=== PATIENT | female | born 1935 | race Caucasian/White ===

== ENCOUNTER 2022-06-14 11:47 | Inpatient (IN) | payer MEDICARE, BC ==
[~2022-06-14] VITALS: Ht 160 cm; Wt 45.4 kg
[~2022-06-14 11:47] MED LIST: ASPI-518; BENA10TA74; HYDR25TA; SIMV10TA97; SOTA160T
[2022-06-14] MEDS ORDERED: AZITHROMYCIN 500MG/250ML 250 ML IV NR (14:00)
[2022-06-14] MEDS ORDERED: CEFTRIAXONE 1GM PREMIX 50 ML IV NR (14:00)
[2022-06-14 14:41] LABS: CHLORIDE 100 mEq/L (98-107)
[2022-06-14 14:43] LABS: INR 1.4; PROTHROMBIN TIME 14.6 sec (9.6-11.0)
[2022-06-14 14:57] LABS: HEMATOCRIT. 24.8 % (36.0-48.0); HEMOGLOBIN. 8.6 g/dL (12.0-16.0); MEAN CORPUSCULAR HEMOGLOBIN 30.1 pg (28.0-32.0); MEAN CORPUSCULAR VOLUME 86.5 fL (81.0-99.0); RED BLOOD CELL COUNT 2.87 mill/uL (4.2-5.4); RED CELL DISTRIBUTION WIDTH 21.9 % (11.6-14.6)
[2022-06-14] MEDS ORDERED: ACETAMINOPHEN 650MG SUPP PR PRN (16:45)
[2022-06-14] MEDS ORDERED: MORPHINE SULFATE 2 MG/ML CPJ (NOT FOR IM USE) IV PRN ×2 (16:45)
[2022-06-14] MEDS ORDERED: IPRATROPIUM/ALBUTEROL 0.5-3(2.5)MG/3ML NEB NEB PRN (16:45)
[2022-06-14] MEDS ORDERED: ONDANSETRON HCL 4MG/2ML INJ IV PRN (16:45)
[2022-06-14] MEDS ORDERED: DEXT 5%/0.45% NACL 1000ML 1,000 ML IV SCH (16:45)
[2022-06-14] MEDS ORDERED: SODIUM CHLORIDE 0.9% 1,000 ML IV ONE (17:00)
[2022-06-14] MEDS ORDERED: KCL 20MEQ/100ML PREMIX 100 ML IV ONE (17:30)
[2022-06-14 17:38] LABS: PLATELET ESTIMATE DECREASED
[2022-06-14 17:42] LABS: MEAN PLATELET VOLUME 10.6 fl (7.4-10.4); PLATELET 82 x1000/uL (130-400)
[2022-06-14] MEDS ORDERED: KCL 20MEQ/100ML PREMIX 100 ML IV NR (21:00)
[2022-06-14 23:51] LABS: CREATINE KINASE 90 IU/L (26-192)
[2022-06-15 01:45] VITALS: BP 91/46
[2022-06-15 07:21] LABS: HEMATOCRIT. 23.6 % (36.0-48.0); HEMOGLOBIN. 8.2 g/dL (12.0-16.0); MEAN CORPUSCULAR HEMOGLOBIN 29.7 pg (28.0-32.0); MEAN CORPUSCULAR VOLUME 85.7 fL (81.0-99.0); RED BLOOD CELL COUNT 2.76 mill/uL (4.2-5.4); RED CELL DISTRIBUTION WIDTH 21.4 % (11.6-14.6)
[2022-06-15 07:33] LABS: CHLORIDE 103 mEq/L (98-107)
[2022-06-15 07:58] LABS: CREATINE KINASE 56 IU/L (26-192); HDL CHOLESTEROL 12 mg/dL (40-59); LDL CHOLESTEROL 25 mg/dL (5-100)
[2022-06-15 08:00] VITALS: BP 91/40
[2022-06-15] MEDS: FAMOTIDINE 20MG/2ML VIAL IV SCH (09:00)
[2022-06-15] MEDS ORDERED: SODIUM CHLORIDE 0.9% 1000ML BAG (SEPSIS BOLUS) IV ONE (10:45)
[2022-06-15] MEDS ORDERED: HEPARIN 100 UNITS/1 ML VIAL IVF PRN (10:45)
[2022-06-15] MEDS: DEXT 5%/0.9% NACL 1,000 ML IV SCH (10:45)
[2022-06-15] MEDS: PIPERACILLIN/TAZOBACTAM 3.375 G in DEXTROSE 5% WATER 50 ML IV SCH ×2 (12:45→23:19)
[2022-06-15] MEDS ORDERED: AZITHROMYCIN 250 MG in DEXT 5% WATER 250 ML IV SCH (14:00)
[2022-06-15] MEDS ORDERED: CEFTRIAXONE 1,000 MG in DEXTROSE 5% WATER 50 ML IV SCH (14:00)
[2022-06-15 16:00] VITALS: BP 78/34
[2022-06-15 16:46] LABS: CLARITY URINE TURBID (CLEAR); COLOR URINE ORANGE (YELLOW); KETONES URINE TRACE (NEGATIVE); LEUKOCYTE ESTERASE URINE 3+ (NEGATIVE); NITRITE URINE POSITIVE (NEGATIVE); OCCULT BLOOD URINE 3+ (NEGATIVE); PROTEIN URINE 2+ (NEGATIVE); SPECIFIC GRAVITY URINE 1.017 (1.005-1.030)
[2022-06-15 20:00] VITALS: BP 86/39
[2022-06-16] VITALS: BP 105/54
[2022-06-16] MEDS: DEXT 5%/0.9% NACL 1,000 ML IV SCH ×2 (03:55→21:47)
[2022-06-16 04:00] VITALS: BP 101/63
[2022-06-16 05:39] LABS: CHLORIDE 105 mEq/L (98-107)
[2022-06-16 05:43] LABS: HEMATOCRIT. 25.9 % (36.0-48.0); HEMOGLOBIN. 8.7 g/dL (12.0-16.0); MEAN CORPUSCULAR HEMOGLOBIN 29.5 pg (28.0-32.0); MEAN CORPUSCULAR VOLUME 87.8 fL (81.0-99.0); RED BLOOD CELL COUNT 2.95 mill/uL (4.2-5.4); RED CELL DISTRIBUTION WIDTH 21.9 % (11.6-14.6)
[2022-06-16 05:48] LABS: CREATINE KINASE 41 IU/L (26-192)
[2022-06-16 08:00] VITALS: BP 94/40
[2022-06-16 08:20] LABS: NUCLEATED RED BLOOD CELLS 1 /100 WBC; PLATELET ESTIMATE DECREASED
[2022-06-16 08:34] LABS: PLATELET ESTIMATE DECREASED
[2022-06-16 08:38] LABS: PLATELET 52 x1000/uL (130-400)
[2022-06-16 08:40] LABS: MEAN PLATELET VOLUME 10.4 fl (7.4-10.4)
[2022-06-16 12:00] VITALS: BP 86/43
[2022-06-16] MEDS: PIPERACILLIN/TAZOBACTAM 3.375 G in DEXTROSE 5% WATER 50 ML IV SCH (12:35)
[2022-06-16 16:00] VITALS: BP 101/56
[2022-06-16 17:08] LABS: CREATINE KINASE 37 IU/L (26-192)
[2022-06-16 20:00] VITALS: BP 103/45
[2022-06-16] MEDS: AZITHROMYCIN 250 MG in DEXT 5% WATER 250 ML IV SCH (21:47)
[2022-06-16] MEDS: ACETAMINOPHEN 650MG SUPP PR PRN (22:56)
[2022-06-17] VITALS: BP 102/49
[2022-06-17] MEDS: PIPERACILLIN/TAZOBACTAM 3.375 G in DEXTROSE 5% WATER 50 ML IV SCH ×3 (00:08→23:30)
[2022-06-17] MEDS ORDERED: DEXTROSE 50% WATER 50ML SYRINGE IV PRN ×2 (00:30→20:45)
[2022-06-17 04:00] VITALS: BP 117/45
[2022-06-17] MEDS: BLOOD SUGAR DIAGNOSTIC STRIP TEST SCH ×5 (07:08→20:53)
[2022-06-17 08:00] VITALS: BP 113/51
[2022-06-17] MEDS: FAMOTIDINE 20MG/2ML VIAL IV SCH (08:56)
[2022-06-17] MEDS: DEXT 5%/0.9% NACL 1,000 ML IV SCH ×2 (11:00→20:49)
[2022-06-17 11:05] LABS: HEMATOCRIT. 25.5 % (36.0-48.0); HEMOGLOBIN. 8.9 g/dL (12.0-16.0); RED BLOOD CELL COUNT 2.96 mill/uL (4.2-5.4); RED CELL DISTRIBUTION WIDTH 22.3 % (11.6-14.6)
[2022-06-17 11:33] LABS: CHLORIDE 109 mEq/L (98-107)
[2022-06-17 11:41] LABS: PHOSPHORUS 2.7 mg/dL (2.5-4.9)
[2022-06-17 12:00] VITALS: BP 96/48
[2022-06-17] MEDS ORDERED: MAGNESIUM 2 G PREMIX 50 ML IV NR (15:00)
[2022-06-17 16:00] VITALS: BP 102/54
[2022-06-17] MEDS: KCL 20MEQ/100ML PREMIX 100 ML IV SCH ×2 (17:29→17:32)
[2022-06-17] MEDS: AZITHROMYCIN 250 MG in DEXT 5% WATER 250 ML IV SCH (17:33)
[2022-06-17 18:53] LABS: MEAN PLATELET VOLUME 11.9 fl (7.4-10.4)
[2022-06-17 18:56] LABS: PLATELET 19 x1000/uL (130-400)
[2022-06-17 18:58] LABS: PLATELET ESTIMATE MARKEDLY DECREASED
[2022-06-17 20:00] VITALS: BP 105/48
[2022-06-17] MEDS: INSULIN LISPRO 100 UNITS/ML SUBCUT SCH (20:53)
[2022-06-18 04:00] VITALS: BP 108/49
[2022-06-18] MEDS: BLOOD SUGAR DIAGNOSTIC STRIP TEST SCH ×3 (06:54→17:20)
[2022-06-18] MEDS: DEXT 5%/0.9% NACL 1,000 ML IV SCH (06:55)
[2022-06-18 07:16] LABS: HEMATOCRIT. 24.2 % (36.0-48.0); HEMOGLOBIN. 8.2 g/dL (12.0-16.0); MEAN CORPUSCULAR HEMOGLOBIN 29.6 pg (28.0-32.0); MEAN CORPUSCULAR VOLUME 86.8 fL (81.0-99.0); MEAN PLATELET VOLUME 12.9 fl (7.4-10.4); RED BLOOD CELL COUNT 2.79 mill/uL (4.2-5.4); RED CELL DISTRIBUTION WIDTH 22.6 % (11.6-14.6)
[2022-06-18] MEDS: INSULIN LISPRO 100 UNITS/ML SUBCUT SCH ×3 (07:50→18:46)
[2022-06-18 08:05] LABS: PLATELET 14 x1000/uL (130-400)
[2022-06-18] MEDS ORDERED: CEFEPIME 1,000 MG in DEXTROSE 5% WATER 50 ML IV SCH (09:30)
[2022-06-18 12:00] VITALS: BP 128/54
[2022-06-18] MEDS: IPRATROPIUM/ALBUTEROL 0.5-3(2.5)MG/3ML NEB HHN SCH ×2 (12:32→14:32)
[2022-06-18] MEDS: ACETAMINOPHEN 650MG SUPP PR PRN (13:50)
[2022-06-18 15:19] LABS: PLATELET ESTIMATE MARKEDL
[2022-06-18 16:00] VITALS: BP 132/74
[2022-06-18] MEDS ORDERED: NALOXONE HCL 0.4MG/ML VIAL IV PRN (17:00)
[2022-06-18] MEDS ORDERED: FUROSEMIDE 20MG/2ML VIAL IVP NR (17:00)
[2022-06-18] MEDS ORDERED: MORPHINE SULFATE 2 MG/ML CPJ (NOT FOR IM USE) IV PRN (17:00)
[2022-06-18] MEDS: AZITHROMYCIN 250 MG in DEXT 5% WATER 250 ML IV SCH (18:42)
== END 2022-06-18 19:39 | DRG 871 ==
LOC: ER 11:47 → 6EST 15:02 → ENRESERV 06-15 01:05
PROVIDERS: ADMIT Internal Medicine; ATTEND Internal Medicine
PROC: 02HV33Z Insertion of Infusion Device into Superior Vena Cava, Percutaneous Approach (ICD-10-PCS; principal; 2022-06-15)
PROC: B548ZZA Ultrasonography of Superior Vena Cava, Guidance (ICD-10-PCS; 2022-06-15)
DX: A41.52 Sepsis due to Pseudomonas (principal); E43 Unspecified severe protein-calorie malnutrition; R65.21 Severe sepsis with septic shock; J18.9 Pneumonia, unspecified organism; J96.00 Acute respiratory failure, unspecified whether with hypoxia or hypercapnia; G93.41 Metabolic encephalopathy; C85.90 Non-Hodgkin lymphoma, unspecified, unspecified site; I13.0 Hypertensive heart and chronic kidney disease with heart failure and stage 1 through stage 4 chronic kidney disease, or unspecified chronic kidney disease; N17.9 Acute kidney failure, unspecified; Z68.1 Body mass index [BMI] 19.9 or less, adult; Z66 Do not resuscitate; D63.0 Anemia in neoplastic disease; E87.6 Hypokalemia; E86.9 Volume depletion, unspecified; I50.9 Heart failure, unspecified; N18.9 Chronic kidney disease, unspecified; R13.10 Dysphagia, unspecified; R62.7 Adult failure to thrive; R74.01 Elevation of levels of liver transaminase levels; L89.156 Pressure-induced deep tissue damage of sacral region; D69.6 Thrombocytopenia, unspecified; Z51.5 Encounter for palliative care; Z95.0 Presence of cardiac pacemaker
CPT/HCPCS: 36415; 36573; 71045; 76770; 80048; 80053; 80061; 81003; 82533; 82550; 82962; 83036; 83605; 83735; 83880; 84100; 84145; 84439; 84443; 84481; 84484; 85025; 87077; 87186; 93306; 94640; 99285; C1725; J0456; J0692; J0696; J1642; J1815; J1940; J2270; J2543; J3475; J3480; J3490; J7042; J7060; A4315